=== PATIENT | female | born 1950 | race Caucasian/White ===

== ENCOUNTER 2019-12-18 08:21 | Day surgery (SDC) | payer MEDICARE, BC ==
[~2019-12-18 08:21] MED LIST: Lactated Ringers 1,000 ML IV SCH; Sodium Chloride 0.9% 10 ML Syringe FLUSH PRN
[2019-12-18] MEDS ORDERED: fentaNYL 100 MCG/2 ML SDV ONE (09:24)
[2019-12-18] MEDS ORDERED: Propofol 200 MG/20 ML SDV ONE ×2 (09:24→11:39)
[2019-12-18 12:12] VITALS: BP 133/70; PULSE 62
--- NOTE | 2019-12-18 14:35 | OR ---
PREOPERATIVE DIAGNOSIS: History of colon polyps. POSTOPERATIVE DIAGNOSIS: Colon polyps x3. PROCEDURE PERFORMED: Total abdominal colonoscopy. ANESTHESIA: MAC anesthesia. COMPLICATIONS: None. BLOOD LOSS: Minimal. FINDINGS: 1. Sigmoid polyp, 4 mm, cold snare. 2. Distal sigmoid polyp, 2 mm, cold snare. 3. Rectal polyp, 2 mm, cold forceps. START TIME: 11:32. CECUM TIME: 11:40. STOP TIME: 11:51. INDICATION FOR PROCEDURE: Blanca Rivas is a 69-year-old female who is here for routine screening colonoscopy. She is asymptomatic, denies bloody or dark black stools. She does not have a family history of colon cancer. She has a personal history of polyps in her last colonoscopy 5 years ago. DETAILS OF PROCEDURE: After informed consent was obtained, the patient was brought to the operating room and placed in left lateral decubitus position on the procedure table. MAC anesthesia was induced by our Anesthesia colleagues without incident. Digital rectal exam was performed and is unremarkable. The colonoscope with Endocuff device was introduced into the anal canal and advanced to the cecum. The appendiceal orifice and IC valve were photographed. The colonoscope was then slowly withdrawn. There were 2 sigmoid polyps and a rectal polyp that were removed. No other pathology was noted except for what is mentioned in the finding section. Bowel prep was [place] class III. RKM: 12/18/2019 12:01:08 MODL: 12/18/2019 14:24:23 /[id number]
== END 2019-12-18 13:00 | disposition home or self-care (01) ==
LOC: VM.SDS 08:21
PROVIDERS: ATTEND Student in an Organized Health Care Education/Training Program
DX: Z12.11 Encounter for screening for malignant neoplasm of colon (principal); K63.5 Polyp of colon; K62.1 Rectal polyp; I12.9 Hypertensive chronic kidney disease with stage 1 through stage 4 chronic kidney disease, or unspecified chronic kidney disease; N18.3 Chronic kidney disease, stage 3 (moderate); M10.331 Gout due to renal impairment, right wrist; Z86.010 Personal history of colon polyps; Z79.82 Long term (current) use of aspirin; Z79.899 Other long term (current) drug therapy; Z88.1 Allergy status to other antibiotic agents; Z86.711 Personal history of pulmonary embolism; Z87.891 Personal history of nicotine dependence; Z86.73 Personal history of transient ischemic attack (TIA), and cerebral infarction without residual deficits
CPT/HCPCS: 00812; 45385; J2704; J3010; J7120

== ENCOUNTER 2020-07-11 13:08 | Emergency (ER) | payer MEDICARE, BC ==
[2020-07-11 13:32] VITALS: BP 147/83; PULSE 85
--- NOTE | 2020-07-11 14:06 | EDM.PDOC ---
ED HPI GENERAL MEDICAL PROBLEM - General Chief Complaint: Lower Extremity Injury/Pain Stated Complaint: left hip pain/shortness of breath/edema Time Seen by Provider: 07/11/20 13:45 Source of Information: Reports: Patient History Limitations: Reports: No Limitations - History of Present Illness INITIAL COMMENTS - FREE TEXT/NARRATIVE: Blanca is a 70 year old female who presents to ER with several complaints. Mostly concerned that she has been experiencing left hip pain. States feels like pin pricks and is much worse when standing or trying to walk. No injury. Admits that her legs get very weak when she is on prednisone which she is currently taking for kidney disease. Denies any back pain. Has noted an increase in swelling in her legs over the last several weeks. They did take her off Norvasc and she does feel that it has helped some with the swelling. History of blood clot many years ago, not currently on anticoagulation. Has a history of congestive heart failure as well. Does take daily Lasix. reports he has had to care more for her as of late due to weakness, concerned as had chills yesterday and her sats had dropped. Does use oxygen at night. COVID test done prior to my arrival, is negative. Onset: Gradual Duration: Day(s):, Getting Worse Location: Reports: Chest, Lower Extremity, Left Quality: Reports: Ache Severity: Moderate Improves with: Reports: Rest Worsens with: Reports: Movement Associated Symptoms: Reports: Fever/Chills, Malaise, Shortness of Breath, Weakness. Denies: Confusion, Chest Pain, Cough, Loss of Appetite, Naus ea/Vomiting Left Leg Pain Score (Numeric/FACES): 7 - Related Data Allergies Allergy/AdvReac Type Severity Reaction Status Date / Time levofloxacin [From Levaquin] Allergy Rash Verified 07/11/20 13:32 Home Meds: Home Meds Aspirin [Tahmina Chewable] 81 mg PO DAILY 09/11/15 [History] Pravastatin Sodium [Pravachol] 20 mg PO DAILY 09/11/15 [History] Tacrolimus [Prograf] 1 mg PO BID 09/11/15 [History] Multivitamin [Multivitamins] 1 tab PO DAILY 10/12/15 [History] Calcium Carbonate/Vitamin D3 [Calcium 250+D] 1 tab PO DAILY 12/09/19 [History] Losartan [Cozaar] 75 mg PO DAILY 12/09/19 [History] Magnesium Oxide [Magnesium] 500 mg PO DAILY 12/09/19 [History] calcitrioL [Rocaltrol] 0.25 mcg PO Q48H 12/09/19 [History] carvediloL [Coreg] 12.5 mg PO BIDMEALS 12/09/19 [History] Furosemide 40 mg PO DAILY 07/11/20 [History] Omeprazole 20 mg PO DAILY PRN 07/11/20 [History] predniSONE [Prednisone] 10 mg PO DAILY 07/11/20 [History] Past Medical History Cardiovascular History: Reports: Blood Clots/VTE/DVT, Heart Failure, High Cholesterol, Hypertension Respiratory History: Reports: COPD, PE, Other (See Below) Other Respiratory History: pleural effusion Other Gastrointestinal History: HEME + STOOL, C diff Genitourinary History: Reports: Chronic Renal Insuffiency, Renal Disease, Other (See Below) Other Genitourinary History: PROTEIN IN URINE Musculoskeletal History: Reports: Gout, Osteoporosis Other Musculoskeletal History: ATAXIA Neurological History: Reports: CVA Hematologic History: Reports: Polycythemia Immunologic History: Reports: None Oncologic (Cancer) History: Reports: Ovarian - Past Surgical History Other HEENT Surgeries/Procedures: BIFOCALS Female Surgical History: Reports: Hysterectomy Social & Family History - Tobacco Use Smoking Status *Q: Former Smoker Used Tobacco, but Quit: Yes Month/Year Tobacco Last Used: 2012 - Caffeine Use Caffeine Use: Reports: Coffee - Alcohol Use Days Per Week of Alcohol Use: 7 Number of Drinks Per Day: 2 Total Drinks Per Week: 14 - Recreational Drug Use Recreational Drug Use: No Review of Systems - Review of Systems Review Of Systems: See Below Constitutional: Reports: Chills, Weakness. Denies: Diaphoresis, Fever Eyes: Reports: No Symptoms Ears: Denies: Dizziness, Pain Nose: Denies: Congestion Mouth/Throat: Reports: No Symptoms Respiratory: Reports: Shortness of Breath. Denies: Cough Cardiovascular: Reports: Edema. Denies: Chest Pain, Palpitations GI/Abdominal: Denies: Abdominal Pain, Nausea, Vomiting Genitourinary: Reports: No Symptoms Musculoskeletal: Reports: Leg Pain, Joint Pain Skin: Reports: Bruising Neurological: Reports: Weakness ED EXAM, GENERAL - Physical Exam Exam: See Below Exam Limited By: No Limitations General Appearance: Alert, WD/WN, No Apparent Distress Ears: Normal External Exam, Normal TMs Nose: Normal Inspection Throat/Mouth: Normal Inspection, Normal Oropharynx Head: Normocephalic Neck: Normal Inspection, Supple, Non-Tender Respiratory/Chest: No Respiratory Distress, Lungs Clear, Normal Breath Sounds Cardiovascular: Regular Rate, Rhythm GI/Abdominal: Normal Bowel Sounds, Soft, Non-Tender Extremities: Normal Range of Motion (good range of motion noted to left hip, no increase in pain with movement. Is tender to palpation to left lateral hip/thigh), Pedal Edema (2-3+ pitting edema) Neurological: Alert, Oriented Skin Exam: Warm, Dry, Other (bruising noted to arms.) Course - Vital Signs Last Recorded V/S: Last Vital Signs Temp 97.8 F 07/11/20 13:10 Pulse 85 07/11/20 13:10 Resp 16 07/11/20 13:10 BP 147/83 H 07/11/20 13:10 Pulse Ox 92 L 07/11/20 13:10 - Orders/Labs/Meds Orders: Active Orders 24 hr Category Date Time Status CORONAVIRUS COVID-19 PCR [facility] Urgent Lab 07/11/20 13:20 Ordered Labs: Laboratory Tests 07/11/20 07/11/20 07/11/20 Range/Units 13:20 14:14 14:14 WBC (4.0-10.0) x10^3/uL RBC (4.00-5.50) x10^6/uL Hgb (12.0-16.0) g/dL Hct (33.0-47.0) % MCV (78.0-93.0) fL MCH (26.0-32.0) pg MCHC (32.0-36.0) g/dL RDW Coeff of Angélica (10.0-15.0) % Plt Count (130-400) x10^3/uL Add Manual Diff Neutrophils % (Manual) (50-80) % Band Neutrophils % (0-6) % Lymphocytes % (Manual) (25-50) % Monocytes % (Manual) (2-11) % Eosinophils % (Manual) (0-4) % Hypersegmented Neuts Platelet Estimate Macrocytosis Ovalocytes D-Dimer, Quantitative 12.35 H (<=0.58) mg/LFEU Sodium 138 (136-145) mmol/L Potassium 4.2 (3.5-5.1) mmol/L Chloride 102 (98-107) mmol/L Carbon Dioxide 26 (21-32) mmol/L Anion Gap 14.2 (10-20) mmol/L BUN 35 H (7-18) mg/dL Creatinine 2.2 H (0.55-1.02) mg/dL Est Cr Clr Drug Dosing 22.48 mL/min Estimated GFR (MDRD) 22 Glucose 119 H (74-106) mg/dL Calcium 9.0 (8.5-10.1) mg/dL Corrected Calcium 10.12 H (8.5-10.1) mg/dL Total Bilirubin 0.9 (0.2-1.0) mg/dL AST 16 (15-37) U/L ALT 29 (14-59) U/L Alkaline Phosphatase 66 (46-116) U/L Creatine Kinase < 7 L (26-192) U/L Troponin I 0.041 (<=0.056) ng/mL C-Reactive Protein 8.0 H (<=0.9) mg/dL NT-Pro-B Natriuret Pep 83500 H (<=125) pg/mL Total Protein 5.8 L (6.4-8.2) g/dL Albumin 2.6 L (3.4-5.0) g/dL Globulin 3.2 Albumin/Globulin Ratio 0.81 COVID-19 ([facility]) Negative (NEGATIVE) 07/11/20 Range/Units 14:14 WBC 8.4 (4.0-10.0) x10^3/uL RBC 3.38 L (4.00-5.50) x10^6/uL Hgb 10.6 L D (12.0-16.0) g/dL Hct 31.7 L (33.0-47.0) % MCV 93.8 H (78.0-93.0) fL MCH 31.4 (26.0-32.0) pg MCHC 33.4 (32.0-36.0) g/dL RDW Coeff of Angélica 13.6 (10.0-15.0) % Plt Count 179 D (130-400) x10^3/uL Add Manual Diff Yes Neutrophils % (Manual) 70 (50-80) % Band Neutrophils % 1 (0-6) % Lymphocytes % (Manual) 15 L (25-50) % Monocytes % (Manual) 11 (2-11) % Eosinophils % (Manual) 3 (0-4) % Hypersegmented Neuts Few H Platelet Estimate Adequate Macrocytosis 1+ slight H Ovalocytes 1+ slight H D-Dimer, Quantitative (<=0.58) mg/LFEU Sodium (136-145) mmol/L Potassium (3.5-5.1) mmol/L Chloride (98-107) mmol/L Carbon Dioxide (21-32) mmol/L Anion Gap (10-20) mmol/L BUN (7-18) mg/dL Creatinine (0.55-1.02) mg/dL Est Cr Clr Drug Dosing mL/min Estimated GFR (MDRD) Glucose (74-106) mg/dL Calcium (8.5-10.1) mg/dL Corrected Calcium (8.5-10.1) mg/dL Total Bilirubin (0.2-1.0) mg/dL AST (15-37) U/L ALT (14-59) U/L Alkaline Phosphatase (46-116) U/L Creatine Kinase (26-192) U/L Troponin I (<=0.056) ng/mL C-Reactive Protein (<=0.9) mg/dL NT-Pro-B Natriuret Pep (<=125) pg/mL Total Protein (6.4-8.2) g/dL Albumin (3.4-5.0) g/dL Globulin Albumin/Globulin Ratio COVID-19 ([facility]) (NEGATIVE) - Re-Assessments/Exams Free Text/Narrative Re-Assessment/Exam: 07/11/20 15:15 Labs all noted. Does have evidence of CHF, elevated d-dimer and increased creatinine. Contacted ANI French, hospitalist for [facility] for admission. Does feel patient complex, may require further work up and nephrology involvement for care of patient. Contact [facility], awaiting call from hospitalist. 07/11/20 15:52 Dr. Marino, hospitalist, at [facility] consulted in regards to complex patient. Agreed to accept the patient in transfer. BLS will be arranged. 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 Marino accepting physician. Sepsis Event Note (ED) - Evaluation Sepsis Screening Result: No Definite Risk - Focused Exam Vital Signs: Vital Signs Temp Pulse Resp BP Pulse Ox 07/11/20 13:10 97.8 F 85 16 147/83 H 92 L - My Orders Last 24 Hours: My Active Orders 07/11/20 13:20 CORONAVIRUS COVID-19 PCR [facility] Urgent - Assessment/Plan Last 24 Hours: My Active Orders 07/11/20 13:20 CORONAVIRUS COVID-19 PCR [facility] Urgent
[2020-07-11 14:47] LABS: CHLORIDE,CL 102 mmol/L (98-107); SODIUM,NA 138 mmol/L (136-145)
[2020-07-11 14:49] LABS: ANION GAP 14.2 mmol/L (10-20)
--- NOTE | 2020-07-11 15:04 | CR ---
[id number] RAD/RAD Chest PA And Lateral EXAM: RAD Chest PA And Lateral INDICATION: SHORTNESS OF BREATH. COMPARISON: April 01, 2020. DISCUSSION: Cardiomegaly and central vascular congestion, similar to the prior examination. Chronic obstructive pulmonary disease, similar to the prior examination. Blunting of the costophrenic sulci not seen previously. This could represent small pleural effusions. No evidence of parenchymal edema or other acute findings. IMPRESSION: As above. Aidan Arroyo MD 07/11/20 [id number] Thank you for allowing us to participate in the care of your patient.
--- NOTE | 2020-07-11 15:11 | CR ---
[id number] RAD/RAD Pelvis 1V W 2V Left Hip Exam: RAD Pelvis 1V W 2V Left Hip Indication:HIP PAIN. Comparison: No prior imaging for comparison. Discussion: No acute fracture or dislocation. Mild bilateral femoroacetabular osteoarthritis. Joint spaces are well-preserved. Impression: As above. Aidan Arroyo MD 07/11/20 [id number] Thank you for allowing us to participate in the care of your patient.
== END 2020-07-11 16:35 | disposition short-term general hospital (02) ==
LOC: VM.ED 13:08
DX: I13.0 Hypertensive heart and chronic kidney disease with heart failure and stage 1 through stage 4 chronic kidney disease, or unspecified chronic kidney disease (principal); N18.9 Chronic kidney disease, unspecified; I50.9 Heart failure, unspecified; R79.1 Abnormal coagulation profile; M79.81 Nontraumatic hematoma of soft tissue; R06.02 Shortness of breath; M25.552 Pain in left hip; E78.00 Pure hypercholesterolemia, unspecified; J44.9 Chronic obstructive pulmonary disease, unspecified; M10.9 Gout, unspecified; Z88.8 Allergy status to other drugs, medicaments and biological substances; Z79.82 Long term (current) use of aspirin; Z79.899 Other long term (current) drug therapy; Z87.891 Personal history of nicotine dependence; Z20.828 Contact with and (suspected) exposure to other viral communicable diseases
CPT/HCPCS: 36415; 71046; 73502; 80053; 82550; 83880; 84484; 85025; 85379; 86140; 99285; U0002; 99284

== ENCOUNTER 2021-12-27 13:56 | Inpatient (IN) | payer MEDICARE, BC ==
[2021-12-27] MEDS ORDERED: Sodium Chloride 0.9% 1,000 ML IV ONE (14:18)
[2021-12-27] MEDS ORDERED: Sodium Chloride 0.9% 10 ML Syringe FLUSH PRN (14:18)
[2021-12-27 14:57] LABS: CHLORIDE,CL 100 mmol/L (98-107); SODIUM,NA 132 mmol/L (136-145)
[2021-12-27 14:58] LABS: ANION GAP 18.8 mmol/L (5-15)
[2021-12-27] MEDS ORDERED: Magnesium Sulfate/Water 2 GM in Premix Bag 1 BAG IV ONE (15:17)
[2021-12-27] MEDS: Sodium Chloride 0.9% 1,000 ML IV SCH (16:58)
[2021-12-27] MEDS: Heparin Sodium/0.45% NaCl 25,000 UNITS/500 ML BAG IV SCH (18:13)
[2021-12-27] MEDS ORDERED: Albuterol HFA 18 Gm Inhaler INH PRN (18:58)
[2021-12-27] MEDS: atorvaSTATin 40 MG Tab PO SCH (20:01)
[2021-12-28] MEDS ORDERED: cefTRIAXone 1 GM Vial IVPUSH ONE (01:43)
[2021-12-28] MEDS: Sodium Chloride 0.9% 1,000 ML IV SCH (04:08)
[2021-12-28 07:09] LABS: ANION GAP 16.4 mmol/L (5-15)
[2021-12-28] MEDS: dexAMETHasone 2 MG, dexAMETHasone 4 MG PO SCH ×2 (07:38)
[2021-12-28] MEDS: Aspirin 81 MG Tab.Chew PO SCH (07:38)
[2021-12-28] MEDS: Carvedilol 25 MG Tab PO SCH ×2 (07:38→17:38)
[2021-12-28] MEDS ORDERED: Calcitriol 0.25 MCG Cap PO SCH (08:00)
[2021-12-28] MEDS ORDERED: Potassium Chloride 10 MEQ Tab.ER PO ONE (09:58)
[2021-12-28] MEDS: Calcium Citrate/Vitamin D3 315 MG-250 Unit Tab PO SCH ×2 (11:09→17:38)
[2021-12-28] MEDS ORDERED: amLODIPine 5 MG Tab PO ONE (16:22)
[2021-12-28] MEDS ORDERED: Benzocaine/Cetylpyridinium/Menthol Lozenge MUCMEM PRN (16:26)
[2021-12-28] MEDS ORDERED: cefTRIAXone 1 GM Vial IVPUSH SCH (20:00)
[2021-12-28] MEDS: atorvaSTATin 40 MG Tab PO SCH (20:03)
[2021-12-29] MEDS: Heparin Sodium/0.45% NaCl 25,000 UNITS/500 ML BAG IV SCH (00:31)
[2021-12-29] MEDS ORDERED: Heparin Sodium 5,000 Units/ML Vial IVPUSH PRN (06:50)
[2021-12-29] MEDS ORDERED: Magnesium Oxide 400 MG Tab PO SCH (08:00)
[2021-12-29] MEDS ORDERED: Furosemide 20 MG/2 ML VIAL IV ONE (08:32)
[2021-12-29] MEDS ORDERED: Apixaban 2.5 MG Tab PO SCH (08:45)
[2021-12-29] MEDS: Carvedilol 25 MG Tab PO SCH (09:12)
[2021-12-29] MEDS: Calcium Citrate/Vitamin D3 315 MG-250 Unit Tab PO SCH (09:13)
[2021-12-29] MEDS: Aspirin 81 MG Tab.Chew PO SCH (09:13)
[2021-12-29] MEDS: dexAMETHasone 2 MG, dexAMETHasone 4 MG PO SCH ×2 (09:13)
[2021-12-29 10:35] VITALS: BP 132/50; PULSE 74
[2021-12-29] MEDS ORDERED: cefTRIAXone 1 GM Vial IVPUSH ONE (11:00)
== END 2021-12-29 12:30 | disposition home or self-care (01) | DRG 177 ==
LOC: VM.ED 13:56 → VM.MS 15:20
PROVIDERS: ADMIT Family Medicine; ATTEND Internal Medicine
PROC: 3E0DX3Z Introduction of Anti-inflammatory into Mouth and Pharynx, External Approach (ICD-10-PCS; principal; 2021-12-29)
DX: U07.1 COVID-19 (principal); I26.99 Other pulmonary embolism without acute cor pulmonale; N17.9 Acute kidney failure, unspecified; N39.0 Urinary tract infection, site not specified; A08.39 Other viral enteritis; E44.0 Moderate protein-calorie malnutrition; I13.0 Hypertensive heart and chronic kidney disease with heart failure and stage 1 through stage 4 chronic kidney disease, or unspecified chronic kidney disease; I50.32 Chronic diastolic (congestive) heart failure; I50.9 Heart failure, unspecified; E87.1 Hypo-osmolality and hyponatremia; N02.2 Recurrent and persistent hematuria with diffuse membranous glomerulonephritis; Z86.711 Personal history of pulmonary embolism; N18.9 Chronic kidney disease, unspecified; E86.0 Dehydration; E87.6 Hypokalemia; B96.89 Other specified bacterial agents as the cause of diseases classified elsewhere; D63.1 Anemia in chronic kidney disease; E83.51 Hypocalcemia; E78.5 Hyperlipidemia, unspecified; E11.22 Type 2 diabetes mellitus with diabetic chronic kidney disease; E78.00 Pure hypercholesterolemia, unspecified; M81.0 Age-related osteoporosis without current pathological fracture; E83.42 Hypomagnesemia; E11.51 Type 2 diabetes mellitus with diabetic peripheral angiopathy without gangrene; M1A.9XX0 Chronic gout, unspecified, without tophus (tophi); R77.8 Other specified abnormalities of plasma proteins; R79.1 Abnormal coagulation profile; D75.1 Secondary polycythemia; Z90.710 Acquired absence of both cervix and uterus; Z88.1 Allergy status to other antibiotic agents; Z79.82 Long term (current) use of aspirin; Z79.52 Long term (current) use of systemic steroids; Z79.899 Other long term (current) drug therapy; Z87.891 Personal history of nicotine dependence; Z86.718 Personal history of other venous thrombosis and embolism; I69.393 Ataxia following cerebral infarction; Z85.43 Personal history of malignant neoplasm of ovary; Z79.01 Long term (current) use of anticoagulants; Z79.02 Long term (current) use of antithrombotics/antiplatelets
CPT/HCPCS: 36415; 71046; 80048; 80053; 80069; 81001; 81003; 82550; 83605; 83735; 84484; 85018; 85025; 85379; 85730; 86140; 87086; 87088; 87186; 93010; 99284; 99285-25; A9270-GY; J0696; J1644; J1940; J3475; J7030; J8540

== ENCOUNTER 2022-01-08 16:58 | Inpatient (IN) | payer MEDICARE, BC ==
[2022-01-08] MEDS ORDERED: Sodium Chloride 0.9% 10 ML Syringe FLUSH PRN (17:13)
[2022-01-08] MEDS ORDERED: Sodium Chloride 0.9% 1,000 ML IV ONE (17:13)
[2022-01-08] MEDS ORDERED: cefTRIAXone 2 GM Vial IV ONE (17:13)
[2022-01-08] MEDS ORDERED: Acetaminophen 325 MG Tab PO ONE (17:56)
[2022-01-08 18:10] LABS: ANION GAP 15.7 mmol/L (5-15)
[2022-01-08] MEDS ORDERED: Albuterol HFA 18 Gm Inhaler INH PRN (19:35)
[2022-01-08] MEDS ORDERED: Acetaminophen 325 MG Tab PO PRN (19:47)
[2022-01-08] MEDS: Sodium Chloride 0.9% 1,000 ML IV SCH (20:31)
[2022-01-08] MEDS: methylPREDNISolone Sodium Succinate 125 MG/2 ML SDV IVPUSH SCH (20:34)
[2022-01-08] MEDS: Apixaban 2.5 MG Tab PO SCH (20:39)
[2022-01-08] MEDS: atorvaSTATin 40 MG Tab PO SCH (20:39)
[2022-01-08 20:58] LABS: PCO2 ARTERIAL,POC 22 mmHg (35-48)
[2022-01-09] MEDS: Sodium Chloride 0.9% 1,000 ML IV SCH ×3 (01:27→23:50)
[2022-01-09] MEDS: Furosemide 20 MG/2 ML VIAL IV SCH ×2 (06:29→07:57)
[2022-01-09] MEDS: Carvedilol 25 MG Tab PO SCH ×2 (07:57→18:53)
[2022-01-09] MEDS: Apixaban 2.5 MG Tab PO SCH ×2 (07:57→20:00)
[2022-01-09] MEDS: methylPREDNISolone Sodium Succinate 125 MG/2 ML SDV IVPUSH SCH ×2 (07:57→20:02)
[2022-01-09] MEDS: Calcitriol 0.25 MCG Cap PO SCH (07:57)
[2022-01-09] MEDS: Clopidogrel 75 MG Tab PO SCH (07:58)
[2022-01-09] MEDS ORDERED: Magnesium Oxide 400 MG Tab PO SCH (08:00)
[2022-01-09] MEDS: Magnesium Oxide 400 MG Tab PO SCH (08:53)
[2022-01-09] MEDS: TACROLIMUS 0.5 MG PO SCH ×2 (12:11→20:01)
[2022-01-09] MEDS: cefTRIAXone 2 GM Vial IVPUSH SCH (17:26)
[2022-01-09] MEDS: atorvaSTATin 40 MG Tab PO SCH (20:00)
[2022-01-09] MEDS: Lactobacillus Rhamnosus GG (Probiotic) Cap PO SCH (20:36)
[2022-01-09] MEDS ORDERED: Aluminum Hydroxide/Magnesium Hydroxide/Simethicone Susp 30 ML Cup PO PRN (21:48)
[2022-01-10 07:35] LABS: ANION GAP 18.4 mmol/L (5-15)
[2022-01-10] MEDS: Lactobacillus Rhamnosus GG (Probiotic) Cap PO SCH (07:47)
[2022-01-10] MEDS: methylPREDNISolone Sodium Succinate 125 MG/2 ML SDV IVPUSH SCH (07:47)
[2022-01-10] MEDS: Furosemide 20 MG/2 ML VIAL IV SCH (07:47)
[2022-01-10] MEDS: Apixaban 2.5 MG Tab PO SCH ×2 (07:48→20:10)
[2022-01-10] MEDS: Clopidogrel 75 MG Tab PO SCH (07:49)
[2022-01-10] MEDS: Carvedilol 25 MG Tab PO SCH ×2 (07:49→17:24)
[2022-01-10] MEDS: TACROLIMUS 0.5 MG PO SCH ×2 (07:49→20:10)
[2022-01-10] MEDS: Magnesium Oxide 400 MG Tab PO SCH (07:50)
[2022-01-10] MEDS: Azithromycin 250 MG Tab PO SCH (08:51)
[2022-01-10] MEDS: Omeprazole 20 MG Cap.CR PO SCH (08:51)
[2022-01-10] MEDS ORDERED: Torsemide 20 MG Tab PO ONE (10:00)
[2022-01-10] MEDS: cefTRIAXone 2 GM Vial IVPUSH SCH (17:24)
[2022-01-10] MEDS: atorvaSTATin 40 MG Tab PO SCH (20:10)
[2022-01-10] MEDS: Losartan 25 MG Tab PO SCH (21:44)
[2022-01-10] MEDS ORDERED: 50% Dextrose in Water 50 ML Syringe IVPUSH PRN (22:20)
[2022-01-10] MEDS ORDERED: Glucagon,Human Recombinant 1 MG Vial IM PRN (22:20)
[2022-01-10] MEDS: Insulin Regular, Human 100 Units/ML 3 ML Vial SUBCUT SCH (22:57)
[2022-01-11 07:02] LABS: ANION GAP 18.2 mmol/L (5-15)
[2022-01-11] MEDS: Furosemide 20 MG/2 ML VIAL IV SCH (07:28)
[2022-01-11] MEDS: Omeprazole 20 MG Cap.CR PO SCH (07:28)
[2022-01-11] MEDS: Magnesium Oxide 400 MG Tab PO SCH (07:29)
[2022-01-11] MEDS: Lactobacillus Rhamnosus GG (Probiotic) Cap PO SCH (07:29)
[2022-01-11] MEDS: Clopidogrel 75 MG Tab PO SCH (07:29)
[2022-01-11] MEDS: Calcitriol 0.25 MCG Cap PO SCH (07:29)
[2022-01-11] MEDS: Azithromycin 250 MG Tab PO SCH (07:29)
[2022-01-11] MEDS: Apixaban 2.5 MG Tab PO SCH ×2 (07:29→19:56)
[2022-01-11] MEDS: Losartan 25 MG Tab PO SCH (07:30)
[2022-01-11] MEDS: Carvedilol 25 MG Tab PO SCH ×2 (07:30→17:36)
[2022-01-11] MEDS: TACROLIMUS 0.5 MG PO SCH ×2 (07:30→19:57)
[2022-01-11] MEDS: Insulin Regular, Human 100 Units/ML 3 ML Vial SUBCUT SCH ×2 (07:32→11:19)
[2022-01-11] MEDS ORDERED: predniSONE 20 MG Tab PO SCH (08:00)
[2022-01-11] MEDS ORDERED: hydrALAZINE 20 MG/ML SDV IVPUSH ONE (09:06)
[2022-01-11] MEDS ORDERED: Albuterol/Ipratropium 3.0-0.5 MG/3 ML Neb Soln NEB PRN (12:09)
[2022-01-11] MEDS ORDERED: [UNRECOGNIZED DRUG - REMARK] SCH (12:15)
[2022-01-11] MEDS ORDERED: Piperacillin/Tazobactam 3.375 GM in Sodium Chloride 0.9% 100 ML IV SCH (12:15)
[2022-01-11] MEDS ORDERED: 50% Dextrose in Water 50 ML Syringe IVPUSH PRN (12:19)
[2022-01-11] MEDS ORDERED: Glucagon,Human Recombinant 1 MG Vial IM PRN (12:19)
[2022-01-11] MEDS ORDERED: Loperamide 2 MG Cap PO PRN (12:20)
[2022-01-11] MEDS: Piperacillin/Tazobactam 3.375 GM in Sodium Chloride 0.9% 100 ML IV SCH (17:36)
[2022-01-11] MEDS: Insulin Glarg,Human.Rec.Analog 100 Unit/ML SUBCUT SCH (19:56)
[2022-01-11] MEDS: atorvaSTATin 40 MG Tab PO SCH (19:56)
[2022-01-12] MEDS: Piperacillin/Tazobactam 3.375 GM in Sodium Chloride 0.9% 100 ML IV SCH ×2 (06:26→18:30)
[2022-01-12 06:52] LABS: ANION GAP 18.2 mmol/L (5-15)
[2022-01-12] MEDS ORDERED: predniSONE 20 MG Tab PO SCH (08:00)
[2022-01-12] MEDS: Omeprazole 20 MG Cap.CR PO SCH (08:01)
[2022-01-12] MEDS: Lactobacillus Rhamnosus GG (Probiotic) Cap PO SCH (08:01)
[2022-01-12] MEDS: Apixaban 2.5 MG Tab PO SCH ×2 (08:01→19:53)
[2022-01-12] MEDS: Clopidogrel 75 MG Tab PO SCH (08:02)
[2022-01-12] MEDS: Carvedilol 25 MG Tab PO SCH ×2 (08:03→18:29)
[2022-01-12] MEDS: TACROLIMUS 0.5 MG PO SCH ×2 (08:06→19:53)
[2022-01-12] MEDS ORDERED: Furosemide 40 MG/4 ML VIAL IV ONE (08:10)
[2022-01-12] MEDS ORDERED: hydrALAZINE 20 MG/ML SDV IVPUSH PRN (08:15)
[2022-01-12] MEDS: atorvaSTATin 40 MG Tab PO SCH (19:53)
[2022-01-12] MEDS: Insulin Glarg,Human.Rec.Analog 100 Unit/ML SUBCUT SCH (19:53)
[2022-01-13] MEDS: Piperacillin/Tazobactam 3.375 GM in Sodium Chloride 0.9% 100 ML IV SCH (06:41)
[2022-01-13 06:51] VITALS: PULSE 62
[2022-01-13 07:11] LABS: ANION GAP 16.2 mmol/L (5-15)
[2022-01-13] MEDS: Apixaban 2.5 MG Tab PO SCH (07:30)
[2022-01-13] MEDS: Lactobacillus Rhamnosus GG (Probiotic) Cap PO SCH (07:30)
[2022-01-13] MEDS: Clopidogrel 75 MG Tab PO SCH (07:30)
[2022-01-13] MEDS: Omeprazole 20 MG Cap.CR PO SCH (07:30)
[2022-01-13] MEDS: Calcitriol 0.25 MCG Cap PO SCH (07:30)
[2022-01-13] MEDS: Carvedilol 25 MG Tab PO SCH (07:30)
[2022-01-13] MEDS: TACROLIMUS 0.5 MG PO SCH (07:33)
[2022-01-13] MEDS ORDERED: predniSONE 10 MG Tab PO SCH (08:00)
[2022-01-13 10:28] VITALS: BP 137/87
[2022-01-13] MEDS ORDERED: amLODIPine 5 MG Tab PO SCH (14:30)
== END 2022-01-13 14:55 | disposition home health service (06) | DRG 871 ==
LOC: VM.ED 16:58 → VM.MS 18:31
PROVIDERS: ADMIT Family Medicine; ATTEND Internal Medicine
DX: E87.1 Hypo-osmolality and hyponatremia (principal); A41.9 Sepsis, unspecified organism; I50.33 Acute on chronic diastolic (congestive) heart failure; I50.9 Heart failure, unspecified; N18.9 Chronic kidney disease, unspecified; E11.22 Type 2 diabetes mellitus with diabetic chronic kidney disease; E78.00 Pure hypercholesterolemia, unspecified; Z86.718 Personal history of other venous thrombosis and embolism; Z86.711 Personal history of pulmonary embolism; M10.9 Gout, unspecified; M81.0 Age-related osteoporosis without current pathological fracture; R27.0 Ataxia, unspecified; D75.1 Secondary polycythemia; J96.01 Acute respiratory failure with hypoxia; J12.82 Pneumonia due to coronavirus disease 2019; Z79.01 Long term (current) use of anticoagulants; E43 Unspecified severe protein-calorie malnutrition; Z79.52 Long term (current) use of systemic steroids; Z79.899 Other long term (current) drug therapy; N17.9 Acute kidney failure, unspecified; I13.0 Hypertensive heart and chronic kidney disease with heart failure and stage 1 through stage 4 chronic kidney disease, or unspecified chronic kidney disease; D84.9 Immunodeficiency, unspecified; E86.0 Dehydration; I25.10 Atherosclerotic heart disease of native coronary artery without angina pectoris; E11.65 Type 2 diabetes mellitus with hyperglycemia; T38.0X5A Adverse effect of glucocorticoids and synthetic analogues, initial encounter; K21.9 Gastro-esophageal reflux disease without esophagitis; N18.30 Chronic kidney disease, stage 3 unspecified; G31.84 Mild cognitive impairment of uncertain or unknown etiology; Z88.1 Allergy status to other antibiotic agents; Z95.5 Presence of coronary angioplasty implant and graft; Z79.02 Long term (current) use of antithrombotics/antiplatelets; Z90.710 Acquired absence of both cervix and uterus; Z87.891 Personal history of nicotine dependence; Z86.16 Personal history of COVID-19
CPT/HCPCS: 36415; 36600; 71045; 71046; 71250; 80048; 80053; 81001; 82803; 82947; 83605; 83735; 83880; 84100; 84145; 84484; 85025; 85379; 86140; 87040; 87045; 87046; 93010; 94760; 96374; 97110-GP; 97116-GP; 97129-GO; 97163-GP; 99284; 99285-25; A9270-GY; J0360; J0696; J1815-GY; J1940; J2543; J2930; J3370; J7030; J7050; J7512

== ENCOUNTER 2022-12-07 08:41 | Emergency (ER) | payer MEDICARE, BC ==
[2022-12-07 09:21] LABS: PTT,PARTIAL THROMBOPLSTIN TIME 22.9 SEC (20.5-30.9)
[2022-12-07 09:27] LABS: CHLORIDE,CL 111 mmol/L (98-107); SODIUM,NA 145 mmol/L (136-145)
[2022-12-07 09:28] LABS: ANION GAP 18.5 mmol/L (5-15); ESTIMATED GFR 9 mL/min (>=60)
[2022-12-07] MEDS ORDERED: Pantoprazole 40 MG Vial IVPUSH ONE (09:47)
[2022-12-07] MEDS ORDERED: Ondansetron 4 MG/2 ML SDV IVPUSH ONE (10:00)
[2022-12-07] MEDS ORDERED: Sodium Chloride 0.9% 1,000 ML IV ONE (10:05)
[2022-12-07 12:45] VITALS: BP 154/72; PULSE 61
== END 2022-12-07 15:00 | disposition short-term general hospital (02) ==
LOC: VM.ED 08:41
DX: K92.2 Gastrointestinal hemorrhage, unspecified (principal); I25.2 Old myocardial infarction; E11.22 Type 2 diabetes mellitus with diabetic chronic kidney disease; I13.0 Hypertensive heart and chronic kidney disease with heart failure and stage 1 through stage 4 chronic kidney disease, or unspecified chronic kidney disease; I50.9 Heart failure, unspecified; N18.9 Chronic kidney disease, unspecified; I26.99 Other pulmonary embolism without acute cor pulmonale; M19.90 Unspecified osteoarthritis, unspecified site; E78.00 Pure hypercholesterolemia, unspecified; Z87.891 Personal history of nicotine dependence; Z88.1 Allergy status to other antibiotic agents; Z79.02 Long term (current) use of antithrombotics/antiplatelets; Z79.899 Other long term (current) drug therapy
CPT/HCPCS: 36415; 36430; 80053; 84484; 85014; 85018; 85025; 85610; 85730; 86140; 86850; 86900; 86901; 86920; 86922; 93005; 93010; 96361; 96374; 96375; 99284; 99285-25; C9113; G0328; J2405; J7030; P9016

== ENCOUNTER 2024-12-10 13:12 | Emergency (ER) | payer MEDICARE, BC ==
[2024-12-10] MEDS: Albuterol/Ipratropium 3.0-0.5 MG/3 ML Neb Soln NEB ONE (13:58)
[2024-12-10 15:19] VITALS: BP 116/60; PULSE 96
== END 2024-12-10 15:15 | disposition designated cancer center or children's hospital (05) ==
LOC: VM.ED 13:12
DX: R06.02 Shortness of breath (principal); R06.2 Wheezing; I13.0 Hypertensive heart and chronic kidney disease with heart failure and stage 1 through stage 4 chronic kidney disease, or unspecified chronic kidney disease; I50.9 Heart failure, unspecified; N18.9 Chronic kidney disease, unspecified; E78.00 Pure hypercholesterolemia, unspecified; E11.9 Type 2 diabetes mellitus without complications; Z88.1 Allergy status to other antibiotic agents; Z79.899 Other long term (current) drug therapy; Z90.710 Acquired absence of both cervix and uterus
CPT/HCPCS: 83880; 85379; 86140; 94640; 99284; 99285; J7620-GY

== ENCOUNTER 2025-01-06 15:04 | Emergency (ER) | payer MEDICARE, BC ==
[2025-01-06 15:48] LABS: BASOPHILS PERCENT AUTO 0.1 % (0.2-1.2); EOSINOPHILS ABSOLUTE AUTO 0.5 x10^3/uL (0.0-0.5); EOSINOPHILS PERCENT AUTO 3.7 % (0.0-4.0); HEMATOCRIT 37.8 % (33.0-47.0); HEMOGLOBIN 12.5 g/dL (12.0-16.0); IMMATURE GRAN ABSOLUTE AUTO 0.07 x10^3/uL (0.00-0.07); LYMPHOCYTES ABSOLUTE AUTO 2.2 x10^3/uL (1.0-4.8); LYMPHOCYTES PERCENT AUTO 15.6 % (25.0-50.0); MEAN CORPUSCULAR HEMOGLOBIN 31.2 pg (26.0-32.0); MEAN CORPUSCULAR HGB CONC 33.1 g/dL (32.0-36.0); MEAN CORPUSCULAR VOLUME 94.3 fL (78.0-93.0); MONOCYTES ABSOLUTE AUTO 1.7 x10^3/uL (0.0-0.8); MONOCYTES PERCENT AUTO 12.1 % (2.0-11.0); NEUTROPHILS ABSOLUTE AUTO 9.3 x10^3/uL (1.8-7.7); PLATELET COUNT,PLT 305 x10^3/uL (130-400); RED BLOOD CELL COUNT 4.01 x10^6/uL (4.00-5.50)
[2025-01-06 15:55] LABS: WHITE BLOOD CELL COUNT,WBC 13.7 x10^3/uL (4.0-10.0)
[2025-01-06 16:01] LABS: ALANINE AMINOTRANSFERASE,ALT 21 U/L (14-59); ALKALINE PHOSPHATASE 208 U/L (46-116); ASPARTATE AMNIOTRANSFERASE,AST 19 U/L (15-37); BILIRUBIN TOTAL 0.3 mg/dL (0.2-1.0); BLOOD UREA NITROGEN,BUN 67 mg/dL (7-18); CALCIUM 9.5 mg/dL (8.5-10.1); CARBON DIOXIDE,CO2 28 mmol/L (21-32); CHLORIDE,CL 91 mmol/L (98-107); GLUCOSE RANDOM 110 mg/dL (70-99); POTASSIUM,K 3.6 mmol/L (3.5-5.1)
[2025-01-06 16:02] LABS: ANION GAP 13.6 mmol/L (5-15); ESTIMATED GFR 12 mL/min (>=60)
[2025-01-06 16:03] LABS: CREATININE 3.7 mg/dL (0.55-1.02); SODIUM,NA 129 mmol/L (136-145)
[2025-01-06] MEDS: Acetaminophen 325 MG Tab PO ONE (17:21)
[2025-01-06 18:27] VITALS: BP 126/87; PULSE 88
== END 2025-01-06 17:32 | disposition home or self-care (01) ==
LOC: VM.ED 15:04
DX: R51.9 Headache, unspecified (principal); E87.1 Hypo-osmolality and hyponatremia; I13.2 Hypertensive heart and chronic kidney disease with heart failure and with stage 5 chronic kidney disease, or end stage renal disease; I50.9 Heart failure, unspecified; N18.6 End stage renal disease; E78.00 Pure hypercholesterolemia, unspecified; E11.22 Type 2 diabetes mellitus with diabetic chronic kidney disease; Z90.710 Acquired absence of both cervix and uterus; Z99.2 Dependence on renal dialysis; Z95.5 Presence of coronary angioplasty implant and graft; Z79.52 Long term (current) use of systemic steroids; Z79.899 Other long term (current) drug therapy; Z88.1 Allergy status to other antibiotic agents
CPT/HCPCS: 70450; 72125; 80053; 85025; 99284; A9270-GY